=== PATIENT | male | born 1980 | race Caucasian/White ===

== ENCOUNTER 2016-06-05 23:30 | Emergency (ER) | payer MEDICARE, OTHER ==
[2016-06-06 00:07] LABS: BASO % 0.4 % (0.2-1.2); EOS # 0.1 10_X3_uL (0.0-0.5); EOS % 2.6 % (0.8-7.0); GRAN # 2.8 10_X3_uL (1.8-5.4); GRAN % 61.8 % (34.0-67.9); HEMATOCRIT 34.9 % (40-51); HEMOGLOBIN 11.7 g/dL (13.7-17.5); LYMPH # 1.1 10_X3_uL (1.3-3.6); MEAN CORPUSCULAR HEMOGLOBIN 30.7 pg (27.0-33.0); MEAN CORPUSCULAR HGB CONC 33.5 g/dL (32.0-36.0); MEAN CORPUSCULAR VOLUME 91.6 fL (79-92); MEAN PLATELET VOLUME 8.7 fl (7.5-11.5); MONO # 0.5 10_X3_uL (0.3-0.8); MONO % 11.2 % (5.3-12.2); PLATELET COUNT 273 x10_3/uL (163-337); RED BLOOD COUNT 3.81 x10_6/uL (4.6-6.1); WHITE BLOOD COUNT 4.5 x10_3/uL (4.2-9.1)
[2016-06-06 00:24] LABS: ALBUMIN 4.1 gm/dL (3.4-5.0); ALKALINE PHOSPHATASE 37 U/L (50-136); ALT/SGPT 16 U/L (7.53-40.17); AST/SGOT 12 U/L (6.66-35.34); BILIRUBIN,TOTAL 0.29 mg/dL (0.0-1.0); BLOOD UREA NITROGEN 17 mg/dL (7-18); CALCIUM 8.6 mg/dL (8.7-10.7); CARBON DIOXIDE 24 mmol/L (21-32); CREATINE KINASE 73 U/L (35-232); CREATININE 0.9 mg/dL (0.6-1.3); GLUCOSE,RANDOM 122 mg/dL (70-99); POTASSIUM 3.5 mmol/L (3.5-5.1); SODIUM 139 mmol/L (136-145); TOTAL PROTEIN 6.5 gm/dL (6.4-8.2)
== END 2016-06-06 01:13 | disposition home or self-care (01) ==
LOC: ER 23:30
PROVIDERS: Emergency Medicine
DX: R07.89 Other chest pain (principal); S00.93XA Contusion of unspecified part of head, initial encounter; W22.8XXA Striking against or struck by other objects, initial encounter
CPT/HCPCS: 36415; 70450; 71010; 80053; 82550; 82553; 85025; 93005; 99284; 99285-25

== ENCOUNTER 2016-08-11 20:04 | Emergency (ER) | payer MEDICARE | END 2016-08-11 21:30 | disposition home or self-care (01) | LOC: ER 20:04 | DX: G43.909 Migraine, unspecified, not intractable, without status migrainosus (principal); J40 Bronchitis, not specified as acute or chronic; J32.9 Chronic sinusitis, unspecified; R11.2 Nausea with vomiting, unspecified; F17.220 Nicotine dependence, chewing tobacco, uncomplicated; Z79.899 Other long term (current) drug therapy; Z79.891 Long term (current) use of opiate analgesic; Z79.1 Long term (current) use of non-steroidal anti-inflammatories (NSAID) | CPT/HCPCS: 96361; 96374; 96375; 99070; 99283; 99283-25; J2930; J7040 ==